=== PATIENT | female | born 1950 | race African-American/Black ===

== ENCOUNTER 2025-07-09 13:38 | Emergency (ER) | payer MEDICARE, MEDICAID ==
[~2025-07-09] VITALS: Ht 165.1 cm; Wt 73.0 kg
[~2025-07-09 13:38] MED LIST: AMI2 PO; APIX2.5T PO; CLOP-31 PO; COR3 PO; EMPA10TA PO; ISOS30TA91 PO; LIP40 PO; PANT40TA51 PO
[2025-07-09 13:42] VITALS: O2SAT 100
[2025-07-09 14:30] VITALS: BP 196/81; PULSE 57; RESP 18; TEMP 36.7; O2SAT 100
== END 2025-07-09 14:34 | disposition home or self-care (01) ==
LOC: ER 13:38
DX: R00.1 Bradycardia, unspecified (principal); I10 Essential (primary) hypertension; I25.2 Old myocardial infarction; J45.909 Unspecified asthma, uncomplicated; F10.90 Alcohol use, unspecified, uncomplicated; Z79.01 Long term (current) use of anticoagulants; Z79.02 Long term (current) use of antithrombotics/antiplatelets; Z79.84 Long term (current) use of oral hypoglycemic drugs; Z79.899 Other long term (current) drug therapy; Z95.1 Presence of aortocoronary bypass graft; Y90.9 Presence of alcohol in blood, level not specified
CPT/HCPCS: 99282